=== PATIENT | male | born 1990 | race African-American/Black ===

== ENCOUNTER 2018-09-11 00:16 | Emergency (ER) | payer OTHER ==
[~2018-09-11] VITALS: Ht 182.9 cm; Wt 86.0 kg
[2018-09-11 00:26] VITALS: Ht 182.9 cm; Wt 86.0 kg
[2018-09-11] MEDS ORDERED: KETOROLAC 30 MG INJ IM STA (04:59)
[2018-09-11] MEDS ORDERED: AMOXICILLIN/CLAV 875 MG TAB PO ONE (05:00)
[2018-09-11] MEDS ORDERED: HYDROCODONE/APAP (5/325) TAB PO ONE (05:00)
--- NOTE | 2018-09-11 05:08 | ERD ---
ER Documentation Chief Complaint Chief Complaint Pt reports L upper tooth pain HPI This is a 28-year-old male patient who presents to emergency room with complaint of left upper tooth pain now radiating into left ear and causing a left-sided headache. He has had a cavity x1 month and has not had dental insurance to get it fixed. Dentist is already prescribed amoxicillin approximately 1 month ago and patient just got insurance yesterday and is planning to get tooth fixed. No fevers, no nausea vomiting. No other medical conditions. ROS All systems reviewed and are negative except as per history of present illness. Medications Home Meds Active Scripts Hydrocodone/Acetaminophen ([place] 5-325 Tablet) 1 Each Tablet, 1 TAB PO Q6H PRN for PAIN, #7 TAB Prov:ROSI YEAGER NP 09/11/18 Ibuprofen* (Motrin*) 600 Mg Tab, 600 MG PO Q6, #30 TAB Prov:ROSI YEAGER NP 09/11/18 Amoxicillin/Potassium Clav (Amox-Clav 875-125 mg Tablet) 875-125 mg Tab, 1 TAB PO BID for 7 Days, #14 TAB Prov:ROSI YEAGER NP 09/11/18 Allergies Allergies: Coded Allergies: No Known Allergy (Unverified , 09/11/18) PMhx/Soc Medical and Surgical Hx: pt denies Medical Hx, pt denies Surgical Hx Hx Alcohol Use: No Hx Substance Use: No Hx Tobacco Use: No Smoking Status: Never smoker FmHx Family History: No diabetes, No coronary disease, No other Physical Exam Vitals Vital Signs Date Temp Pulse Resp B/P (MAP) Pulse Ox O2 O2 Flow FiO2 Time Delivery Rate 09/11/18 97.8 52 20 158/100 100 Room Air 05:23 (119) 09/11/18 98.0 63 20 129/74 97 00:26 (92) Physical Exam Const: No acute distress Head: Atraumatic, no swelling, no maxillary tenderness, no erythema Eyes: Normal Conjunctiva, PERRL, no periorbital swelling or cellulitis ENT: Normal External Ears, No pre or post auricular tenderness, no sublingual, submental, or submandibular swelling. Pharynx pink, no lesions, no exudate, tonsils +1. Left upper molar with dark brown decay, tender, +erythema to lingual surface , no odor, no TMJ pain. Neck: Full range of motion. No meningismus. No lymphadenopathy. No dysphagia, no hot potato voice, no stridor Resp: Clear to auscultation bilaterally Cardio: Regular rate and rhythm, no murmurs Abd: Soft, non tender, non distended. Normal bowel sounds Skin: No petechiae or rash Ext: No cyanosis, or edema Neur: Awake and alert Psych: Normal Mood and Affect Results 24 hrs Current Medications Medications Dose Sig/Omari Start Time Status Last (Trade) Ordered Route PRN Stop Time Admin Dose Reason Admin Ketorolac 30 mg ONCE STAT 09/11/18 DC 09/11/18 Tromethamine IM 04:59 05:06 (Toradol) 09/11/18 05:02 1 tab ONCE ONCE 09/11/18 DC 09/11/18 Acetaminophen PO 05:00 05:06 / 09/11/18 05:02 Hydrocodone Bitart ([facility] (5/325)) 875 mg ONCE ONCE 09/11/18 DC 09/11/18 Amoxicillin/ PO 05:00 05:18 Clavulanate 09/11/18 05:02 Potassium (Augmentin) Procedures/MDM Is a 28-year-old male patient presents emergency room with pain of left upper tooth pain x1 month. ED COURSE: The patient was stable throughout ED course. PROCEDURES: None. MEDICATIONS GIVEN: Toradol, Augmentin, Ibuprofen Patient tolerated medication well with no adverse reactions. Patient reported improvement in pain. MDM: This patients dental infection appears to be appropriate for outpatient treatment with close follow-up for reevaluation by a clinician within 24-48 hours. A serious, rapidly progressive infectious process is unlikely based upon the patients presentation and appearance of the infection. Antibiotic treatment has been initiated here and response to treatment will be based on reassessment at close follow-up. The patient has been instructed on signs and symptoms of acute progression of infection and to return immediately if any of these occur. Clinical presentation and exam not suggestive for abscess, pending airway ob struction, deep space infection, Paul's angina, cellulitis, sinusitis DISPOSITION: The patient has been discharge home to follow-up with community physician. Departure Diagnosis: Primary Impression: Infected dental caries Condition: Stable Patient Instructions: Dental Abscess Referrals: [facility] Additional Instructions: Thank you very much for allowing us to participate in your care. Your health and safety is our top priority at [facility]. Call your primary care doctor TOMORROW for an appointment during the next 2-4 days and bring all the information and medications prescribed. Have prescriptions filled and follow precisely the directions on the label. If the symptoms get worse and your provider is unavailable, return to the Emergency Department immediately. TAKE ENTIRE COURSE OF ANTIBIOTICS USE IBUPROFEN FOR PAIN, NORCO FOR SEVERE PAIN USE SALTWATER GARGLES FOR COMFORT SEE DENTIST NENITA RETURN TO ER FOR FEVER, SWELLING, WORSENING OF SYMPTOMS ROSI YEAGER NP Sep 11, 2018 05:08
[2018-09-11] MEDS ORDERED: HYDR-4011 PO (05:10)
[2018-09-11] MEDS ORDERED: IBUP-1542 PO (05:10)
[2018-09-11] MEDS ORDERED: AMOX1TAB10 PO (05:10)
[2018-09-11 05:23] VITALS: BP 158/100; PULSE 52; RESP 20
== END 2018-09-11 05:36 | disposition home or self-care (01) ==
LOC: FTE 00:16
DX: K04.7 Periapical abscess without sinus (principal)
CPT/HCPCS: 96372; J1885; Z7502; Z7610